=== PATIENT | female | born 1975 | race Caucasian/White ===

== ENCOUNTER 2016-05-23 12:04 | Emergency (ER) | payer BC ==
--- NOTE | 2016-05-27 11:27 | ER ---
ADMIT: 05/23/2016 RM/LOC: ER [facility] MR#: [id number] [address] [id number] POONAM GLEASON [address] [place] [address] Emergency Room Report SEX: F AGE: 40 : 1975 DATE: 05/23/2016 ADDENDUM: CHIEF COMPLAINT: Right ear pain. HISTORY OF PRESENT ILLNESS: This is a 40-year-old who developed this pain about noon yesterday, just progressively worsened. She does have otitis media on the right. I placed her on amoxicillin for 10 days. Having her use Motrin or Tylenol for pain. Follow up with her PCP if worsen. CLINICAL IMPRESSION: Otitis media of the right ear. KLEVER Bradford / Akil Giles MD / олегl JOB #: [id number] CC: Akil Giles MD, Attending Physician Maykel Garcia MD, Family Physician
== END 2016-05-23 12:40 | disposition home or self-care (01) ==
LOC: ER 12:04
DX: H66.91 Otitis media, unspecified, right ear (principal); F17.210 Nicotine dependence, cigarettes, uncomplicated; Z79.899 Other long term (current) drug therapy